=== PATIENT | male | born 1985 | race Caucasian/White ===

== ENCOUNTER 2020-01-29 06:47 | Day surgery (SDC) | payer OTHER ==
[~2020-01-29 06:47] MED LIST: Dexamethasone 4 MG/ML 5 ML MDV ONE; HYDROmorphone 1 MG/ML Syringe ONE; Ketorolac 30 MG/ML SDV ONE; Lactated Ringers 1,000 ML IV SCH; Lactated Ringers 1,000 ML ONE; Lidocaine 1% 4 ML ONE; Lidocaine 1%/Sod Bicarbonate in NS 8.4% 1 ML Syringe IDERM PRN; Midazolam 1 MG/ML 2 ML SDV ONE; Ondansetron 4 MG/2 ML SDV ONE; Propofol 200 MG/20 ML SDV ONE; Sodium Chloride 0.9% 10 ML Syringe FLUSH PRN; ceFAZolin 1 GM Vial ONE; fentaNYL 250 MCG/5 ML SDV ONE
--- NOTE | 2020-01-29 07:03 | PCM.PREANE ---
Preanesthetic Assessment - Anesthesia/Transfusion/Family Hx Anesthesia History: Prior Anesthesia Without Reaction Family History of Anesthesia Reaction: No Transfusion History: No Prior Transfusion(s) Intubation History: Unknown - Review of Systems Pulmonary: No Symptoms (ETOH:beer on weekends) Cardiovascular: No Symptoms Gastrointestinal: No Symptoms Neurological: No Symptoms Other: Reports: None, Sinus Problem (seasonal allergies) - Physical Assessment NPO Status Date: 01/28/20 NPO Status Time: 23:00 Vital Signs: HR:73 B/P:132/76 Temp: 96.6 Resp: 16 Sat: 96% Height: 1.75 m Weight: 95 kg ASA Class: 2 Mental Status: Alert & Oriented x3 Airway Class: Mallampati = 2 Dentition: Reports: Normal Dentition, Caries Thyro-Mental Finger Breadths: 3 Mouth Opening Finger Breadths: 3 ROM/Head Extension: Full Lungs: Clear to Auscultation, Normal Respiratory Effort Cardiovascular: Regular Rate, Regular Rhythm, No Murmurs - Lab Values: Laboratory Last Values WBC 4.18 K/mm3 (4.23-9.07) L 01/27/20 11:51 RBC 5.00 M/mm3 (4.63-6.08) 01/27/20 11:51 Hgb 14.9 gm/dl (13.7-17.5) 01/27/20 11:51 Hct 44.1 % (40.1-51.0) 01/27/20 11:51 MCV 88.2 fl (79.0-92.2) 01/27/20 11:51 MCH 29.8 pg (25.7-32.2) 01/27/20 11:51 MCHC 33.8 g/dl (32.2-35.5) 01/27/20 11:51 RDW Std Deviation 40.6 fL (35.1-43.9) 01/27/20 11:51 Plt Count 188 K/mm3 (163-337) 01/27/20 11:51 MPV 11.0 fl (9.4-12.3) 01/27/20 11:51 Neut % (Auto) 58.7 % (34.0-67.9) 01/27/20 11:51 Lymph % (Auto) 28.7 % (21.8-53.1) 01/27/20 11:51 [place] % (Auto) 8.6 % (5.3-12.2) 01/27/20 11:51 Eos % (Auto) 3.1 (0.8-7.0) 01/27/20 11:51 Baso % (Auto) 0.7 % (0.1-1.2) 01/27/20 11:51 Neut # (Auto) 2.45 K/mm3 (1.78-5.38) 01/27/20 11:51 Lymph # (Auto) 1.20 K/mm3 (1.32-3.57) L 01/27/20 11:51 [place] # (Auto) 0.36 K/mm3 (0.30-0.82) 01/27/20 11:51 Eos # (Auto) 0.13 K/mm3 (0.04-0.54) 01/27/20 11:51 Baso # (Auto) 0.03 K/mm3 (0.01-0.08) 01/27/20 11:51 Sodium 137 mEq/L (136-145) 01/27/20 11:51 Potassium 4.0 mEq/L (3.5-5.1) 01/27/20 11:51 Chloride 102 mEq/L (98-107) 01/27/20 11:51 Carbon Dioxide 27 mEq/L (21-32) 01/27/20 11:51 Anion Gap 12.0 (5-15) 01/27/20 11:51 BUN 10 mg/dL (7-18) 01/27/20 11:51 Creatinine 0.8 mg/dL (0.7-1.3) 01/27/20 11:51 Est Cr Clr Drug Dosing TNP 01/27/20 11:51 Estimated GFR (MDRD) > 60 mL/min (>60) 01/27/20 11:51 BUN/Creatinine Ratio 12.5 (14-18) L 01/27/20 11:51 Glucose 90 mg/dL (74-106) 01/27/20 11:51 Calcium 8.9 mg/dL (8.5-10.1) 01/27/20 11:51 COVID-19 PCR Not detected (NOT DETECT) 01/27/20 12:15 MRSA (PCR) Negative 01/27/20 11:51 Above labs reviewed and noted and within acceptable ranges to proceed with scheduled procedure. - Allergies Allergies/Adverse Reactions: Allergies Allergy/AdvReac Type Severity Reaction Status Date / Time No Known Allergies Allergy Verified 01/28/20 16:46 - Anesthesia Plan Pre-Op Medication Ordered: None - Acknowledgements Anesthesia Type Planned: General Anesthesia Pt an Appropriate Candidate for the Planned Anesthesia: Yes Alternatives and Risks of Anesthesia Discussed w Pt/Guardian: Yes Pt/Guardian Understands and Agrees with Anesthesia Plan: Yes PreAnesthesia Questionnaire HEENT History: Reports: None Cardiovascular History: Reports: None Respiratory History: Reports: None Gastrointestinal History: Reports: None Genitourinary History: Reports: None CLIENT STRATEGIST History: Reports: None Musculoskeletal History: Reports: None Neurological History: Reports: None Psychiatric History: Reports: None Endocrine/Metabolic History: Reports: None Hematologic History: Reports: None Immunologic History: Reports: None Oncologic (Cancer) History: Reports: None Dermatologic History: Reports: None - Infectious Disease History Infectious Disease History: Reports: None - Past Surgical History Head Surgeries/Procedures: Reports: None HEENT Surgical History: Reports: None Cardiovascular Surgical History: Reports: None Respiratory Surgical History: Reports: None GI Surgical History: Reports: None Female Surgical History: Reports: None Male Surgical History: Reports: None Endocrine Surgical History: Reports: None Neurological Surgical History: Reports: None Musculoskeletal Surgical History: Reports: Other (See Below) Other Musculoskeletal Surgeries/Procedures:: right acl reconstruction Oncologic Surgical History: Reports: None Dermatological Surgical History: Reports: None - SUBSTANCE USE Smoking Status *Q: Never Smoker Recreational Drug Use History: No - HOME MEDS Home Medications: Home Meds . [No Known Home Meds] 01/28/20 [History] - CURRENT (IN HOUSE) MEDS Current Meds: Current Medications Lactated Ringer's (Ringers, Lactated) 1,000 mls @ 125 mls/hr IV ASDIRECTED ASIA Stop: 01/29/20 23:00 Lidocaine/Sodium Bicarbonate (Buffered Lidocaine 1% In Ns 8.4%) 0.25 ml IDERM ONETIME PRN PRN Reason: Prior to IV Start Stop: 01/29/20 18:00 Sodium Chloride (Saline Flush) 10 ml FLUSH ASDIRECTED PRN PRN Reason: Keep Vein Open Stop: 01/29/20 18:00 Discontinued Medications Cefazolin Sodium (Ancef) Confirm Administered Dose 2 gm .ROUTE .STK-MED ONE Stop: 01/29/20 06:39 Dexamethasone (Dexamethasone) Confirm Administered Dose 20 mg .ROUTE .ST-MED ONE Stop: 01/29/20 06:39 Fentanyl (Sublimaze) Confirm Administered Dose 250 mcg .ROUTE .STK-MED ONE Stop: 01/29/20 06:40 Hydromorphone HCl (Dilaudid) Confirm Administered Dose 1 mg .ROUTE .ST-MED ONE Stop: 01/29/20 06:39 Lidocaine HCl (Xylocaine-Mpf 1%) Confirm Administered Dose 4 mls @ as directed .ROUTE .ST-MED ONE Stop: 01/29/20 06:39 Lactated Ringer's (Ringers, Lactated) Confirm Administered Dose 1,000 mls @ as directed .ROUTE .ST-MED ONE Stop: 01/29/20 06:39 Ketorolac Tromethamine (Toradol) Confirm Administered Dose 30 mg .ROUTE .ST-MED ONE Stop: 01/29/20 06:39 Midazolam HCl (Versed 1 Mg/Ml) Confirm Administered Dose 2 mg .ROUTE .ST-MED ONE Stop: 01/29/20 06:40 Ondansetron HCl (Zofran) Confirm Administered Dose 4 mg .ROUTE .ST-MED ONE Stop: 01/29/20 06:39 Propofol (Diprivan 20 Ml) Confirm Administered Dose 400 mg .ROUTE .STK-MED ONE Stop: 01/29/20 06:39
[2020-01-29] MEDS ORDERED: Bupivacaine 0.25% 10 ML SDV ONE (07:18)
[2020-01-29] MEDS ORDERED: EPINEPHrine 1 MG/ML 30 ML MDV IRR SCH (08:00)
[2020-01-29] MEDS ORDERED: diphenhydrAMINE 50 MG/ML SDV IVPUSH PRN (08:36)
[2020-01-29] MEDS ORDERED: Ondansetron 4 MG/2 ML SDV IVPUSH PRN (08:36)
[2020-01-29] MEDS ORDERED: ePHEDrine 50 MG/ML SDV IVPUSH PRN (08:36)
[2020-01-29] MEDS ORDERED: fentaNYL 100 MCG/2 ML SDV IVPUSH PRN (08:36)
[2020-01-29] MEDS ORDERED: HYDROmorphone 0.5 MG/0.5 ML Syringe IVPUSH PRN (08:37)
[2020-01-29] MEDS ORDERED: Phenylephrine 1 MG in Sodium Chloride 0.9% 10 ML IV PRN (08:45)
--- NOTE | 2020-01-29 09:18 | PCM.POSTAN ---
POST ANESTHESIA ASSESSMENT - MENTAL STATUS Mental Status: Alert - VITAL SIGNS Vital Signs: Last Vital Signs Temp 97.6 01/29/20911 Pulse 98 01/29/20911 Resp 12 01/29/20911 BP 153/94 01/29/20911 Pulse Ox 100 01/29/20911 - RESPIRATORY Respiratory Status: Respiratory Rate WNL, Airway Patent, O2 Saturation Stable, Supplemental Oxygen - CARDIOVASCULAR CV Status: Pulse Rate WNL - GASTROINTESTINAL GI Status: No Symptoms - POST OP HYDRATION Hydration Status: Adequate & Stable
--- NOTE | 2020-01-29 12:02 | PCM48HPAN ---
Post Anesthesia Note - EVALUATION WITHIN 48HRS OF ANESTHETIC Vital Signs in Normal Range: Yes Patient Participated in Evaluation: Yes Respiratory Function Stable: Yes Airway Patent: Yes Cardiovascular Function Stable: Yes Hydration Status Stable: Yes Pain Control Satisfactory: Yes Nausea and Vomiting Control Satisfactory: Yes Mental Status Recovered: Yes Vital Signs: Last Vital Signs Temp 36.6 C 01/29/20 09:55 Pulse 87 01/29/20 09:55 Resp 16 01/29/20 09:55 BP 107/70 01/29/20 09:55 Pulse Ox 94 L 01/29/20 09:55
--- NOTE | 2020-02-04 08:47 | PCM.OPNOTE ---
- General Post-Op/Procedure Note Date of Surgery/Procedure: 01/29/20 Operative Procedure(s): right knee video arthroscopy with partial medial meniscectomy Pre Op Diagnosis: right knee medial meniscus tear Post-Op Diagnosis: same with grade 3 chondromalacia of the medial femoral condyle Anesthesia Technique: General LMA, Local Primary Surgeon: Maciel Joyce Anesthesia Provider: Fouzia Padron EBL in mLs: 5 Complications: None Condition: Good
--- NOTE | 2020-02-04 09:34 | OR ---
DATE OF OPERATION: 01/29/2020 SURGEON: Maciel Joyce MD OPERATION PERFORMED: Right knee video arthroscopy with partial medial meniscectomy. PREOPERATIVE DIAGNOSIS: Right knee medial meniscus tear. POSTOPERATIVE DIAGNOSIS: Right knee medial meniscus tear with grade 3 chondromalacia of the medial femoral condyle. ANESTHESIA: General LMA with local. ANESTHESIA PROVIDER: Fouzia Padron CRNA ESTIMATED BLOOD LOSS: 5 mL. COMPLICATIONS: None. CONDITION: Stable. DESCRIPTION OF PROCEDURE: The patient was identified in the preoperative holding area. Proper site was marked and identified by the surgeon. The patient was taken back to the operative theater, where after adequate anesthesia, the patient's left lower extremity was placed in a well leg curry. Right lower extremity had a nonsterile tourniquet applied and was placed in a C-clamp curry. Foot of the bed was then lowered. Right lower extremity was then sterilely prepped and draped in the usual sterile fashion. OR time-out was performed. The patient received 2 g of IV Ancef. Right lower extremity was exsanguinated. Tourniquet was insufflated to 250 mmHg. Standard anterior lateral portal incision was made. This was placed into the knee joint. Patellofemoral joint showed only very minor grade 1 chondromalacic changes. There was no loose or foreign bodies in the suprapatellar pouch. Attention was turned to the medial gutter. The patient was noted to have a displaced bucket-handle tear of the medial meniscus with severe damage to the meniscus with near-complete disruption posteriorly and it was in the red-white zone. At this time, this was found to be not repairable secondary to the longstanding injury. A partial medial meniscectomy was then completed after an anterior medial portal was created of the bucket-handle tear. This was brought back to a stable rim. The patient was noted to have grade 3 chondromalacic changes secondary to the bucket-handle tear on his medial femoral condyle. ACL was deficient in the notch. Lateral compartment showed no chondromalacic changes at this time. Excess saline was drained from the knee. 3-0 nylon suture was used for closure of the skin after 0.25% Marcaine was injected. The patient had a sterile soft dressing applied and was sent to the PACU in stable condition. MMODAL /[id number]
== END 2020-01-29 10:10 | disposition home or self-care (01) ==
LOC: JD.SDS 06:47
PROVIDERS: ATTEND Orthopaedic Surgery
DX: S83.211A Bucket-handle tear of medial meniscus, current injury, right knee, initial encounter (principal); M22.41 Chondromalacia patellae, right knee; Z01.812 Encounter for preprocedural laboratory examination; Z20.828 Contact with and (suspected) exposure to other viral communicable diseases; X58.XXXA Exposure to other specified factors, initial encounter
CPT/HCPCS: 29881; 36415; 80048; 85025; 87635; 87641; J0171; J0690; J1100; J1170; J1885; J2001; J2250; J2370; J2405; J2704; J3010; J3490; J7120; 01400; U0002